=== PATIENT | male | born 2000 | race Hispanic/Latino ===

== ENCOUNTER 2020-06-27 23:45 | Emergency (ER) | payer OTHER, SELFPAY ==
[2020-06-28] MEDS ORDERED: ACETAMINOPHEN 500 MG TAB ONE (01:32)
[2020-06-28 02:31] LABS: Absolute Lymphocytes (CBC) 0.9 K/uL (0.7-4.9); Basophils % 0.1 % (0-1.3); Hematocrit 44.4 % (39.6-49.0); Lymphocytes % 6.7 % (15.3-44.8); RBC Red Blood Cell Count 4.89 M/uL (4.33-5.43)
[2020-06-28 02:37] LABS: ALT/SGPT 48 U/L (12-78); AST/SGOT 21 U/L (15-37); Albumin 4.1 g/dL (3.4-5.0); Alkaline Phosphatase 65 U/L (45-117); BUN Blood Urea Nitrogen 12 mg/dL (7-18); Bicarbonate 27 mmol/L (21-32); Bilirubin Direct 0.1 mg/dL (0-0.2); Bilirubin Total 0.6 mg/dL (0.2-1.0); Glucose Level 92 mg/dL (74-106); Lipase 52 U/L (73-393); NT PRO-BNP 76 pg/mL (<125); Potassium 3.6 mmol/L (3.5-5.1); Protein, Total 8.1 g/dL (6.4-8.2); Sodium Level 142 mmol/L (136-145); Troponin (Emerg Dept Use Only) < 0.02 ng/mL (0.0-0.045)
[2020-06-28] MEDS ORDERED: IPRATROPIUM BROM 0.5MG/2.5ML ONE (03:58)
[2020-06-28] MEDS ORDERED: ALBUTEROL 2.5 MG/3 ML NEB SOL ONE (03:58)
[2020-06-28] MEDS ORDERED: CLINDAMYCIN IV 150 MG/ML (4 mL) VIAL ONE (08:01)
[2020-06-28] MEDS ORDERED: NA CHLORIDE 0.9% 50 ML ONE (08:01)
--- NOTE | 2020-06-28 09:07 | RAD REPORT ---
EXAM DESCRIPTION: RAD - Chest Single View - 06/28/2020 1:29 am CLINICAL HISTORY: COUGH Chest pain. COMPARISON: No comparisons FINDINGS: Portable technique limits examination quality. The lungs are grossly clear. The heart is normal in size. No displaced fractures. IMPRESSION: No acute intrathoracic process suspected.
--- NOTE | 2020-06-28 09:30 | ER ---
Nurse's Notes [facility] Name: Kla Newman Age: 19 yrs Sex: Male : 2000 Arrival Date: 06/27/2020 Time: 23:48 Bed 14 Private MD: Diagnosis: Vomiting-pneumomediastinum Presentation: 06/28 00:50 Chief complaint: Patient states: I was drinking Charli aid on Saturday and accidently jb4 inhaled it and it irritated my throat. I think that swallowing my saliva to soothe my throat caused it to get infected. Coronavirus screen: Client denies travel out of the [place] in the last 14 days. At this time, the client does not indicate any symptoms associated with coronavirus-19. Ebola Screen: No symptoms or risks identified at this time. Initial Sepsis Screen: Does the patient meet any 2 criteria? HR > 90 bpm. Yes Does the patient have a suspected source of infection? No. Patient's initial sepsis screen is negative. Risk Assessment: Do you want to hurt yourself or someone else? Patient reports no desire to harm self or others. Onset of symptoms was June 25, 2020. Transition of care: patient was not received from another setting of care. 00:50 Method Of Arrival: Ambulatory jb4 00:50 Acuity: SAEED 3 jb4 Triage Assessment: 07:00 Respiratory: Reports cough that is Onset: The symptoms/episode began/occurred the iw patient has mild shortness of breath. Historical: - Allergies: 00:52 No Known Allergies; jb4 - Home Meds: 00:52 None [Active]; jb4 - PMHx: 00:52 None; jb4 - PSHx: 00:52 None; jb4 - Immunization history:: Adult Immunizations not up to date. - Social history:: Smoking status: Patient reports the use of cigarette tobacco products, smokes one pack cigarettes per day. Patient uses street drugs, marijuana, Patient/guardian denies using alcohol. Screenin:52 Abuse screen: Denies threats or abuse. Nutritional screening: No deficits noted. jb4 Tuberculosis screening: No symptoms or risk factors identified. Fall Risk None identified. Assessment: 00:52 General: Appears in no apparent distress. uncomfortable, ill, Behavior is calm, jb4 cooperative, appropriate for age. Pain: Complains of pain in chest Pain radiates to back Pain currently is 6 out of 10 on a pain scale. Neuro: Level of Consciousness is awake, alert, obeys commands, Oriented to person, place, time, situation. Cardiovascular: Patient's skin is warm and dry. Respiratory: Airway is patent Respiratory effort is even, unlabored, Respiratory pattern is regular, symmetrical, Breath sounds are clear in right upper lobe, left upper lobe, right middle lobe, right lower lobe, left posterior upper lobe, right posterior upper lobe, left posterior lower lobe, right posterior middle lobe and right posterior lower lobe Breath sounds with wheezes in left lower lobe. GI: No signs and/or symptoms were reported involving the gastrointestinal system. : No signs and/or symptoms were reported regarding the genitourinary system. EENT: No signs and/or symptoms were reported regarding the EENT system. Derm: Skin is intact, Skin is pink, warm \T\ dry. Musculoskeletal: Circulation, motion, and sensation intact. Range of motion: intact in all extremities. 01:30 Reassessment: Pt oxygen dropped while supine and awake. Placed on 2L NC provider jb4 notified. 01:40 Reassessment: Pt O2 increased to 93% while on 2L NC. jb4 02:45 Reassessment: Patient appears in no apparent distress at this time. Patient and/or jb4 family updated on plan of care and expected duration. Pain level reassessed. Patient is alert, oriented x 3, equal unlabored respirations, skin warm/dry/pink. 04:00 Reassessment: Patient appears in no apparent distress at this time. Patient and/or jb4 family updated on plan of care and expected duration. Pain level reassessed. Patient is alert, oriented x 3, equal unlabored respirations, skin warm/dry/pink. Patient states feeling better. 05:00 Reassessment: Patient appears in no apparent distress at this time. Patient and/or jb4 family updated on plan of care and expected duration. Pain level reassessed. Patient is alert, oriented x 3, equal unlabored respirations, skin warm/dry/pink. 05:30 Reassessment: CT report is back. Provider notified of CT report, pt denies recent jb4 vascular access attempts to the right jugular area of the neck. Crepitus is noted to the right of the trachea and tenderness is reported upon palpation. Provider notified. Pt's trachea remains midline, with no visible exterior swelling noted. Respirations are even and unlabored. 05:45 Reassessment: Patient appears in no apparent distress at this time. Patient and/or jb4 family updated on plan of care and expected duration. Pain level reassessed. Patient is alert, oriented x 3, equal unlabored respirations, skin warm/dry/pink. 06:45 Reassessment: Patient appears in no apparent distress at this time. Patient and/or jb4 family updated on plan of care and expected duration. Pain level reassessed. Patient is alert, oriented x 3, equal unlabored respirations, skin warm/dry/pink. Mother remains at the bedside. 08:08 Reassessment: Patient appears in no apparent distress at this time. Patient and/or iw family updated on plan of care and expected duration. Pain level reassessed. Patient is alert, oriented x 3, equal unlabored respirations, skin warm/dry/pink. mother at beside, updated on POC, no beds available in [facility] at this time, will continue to attempt transfer. 10:00 Cardiovascular: Rhythm is regular. iw Vital Signs: 00:50 BP 152 / 96; Pulse 112; Resp 18; Temp 100.4(O); Pulse Ox 94% on R/A; Weight 77.11 kg jb4 (R); Height 5 ft. 5 in. (165.10 cm) (R); Pain 6/10; 01:30 BP 140 / 74; Pulse 104; Resp 20; Pulse Ox 89% on R/A; jb4 01:51 Pulse Ox 95% on 2 lpm NC; jb4 02:30 BP 129 / 84; Pulse 93; Resp 16; Pulse Ox 97% on 2 lpm NC; jb4 03:04 Temp 98.7(O); jb4 04:00 BP 139 / 80; Pulse 122; Resp 16; Pulse Ox 97% on R/A; jb4 04:30 BP 132 / 68; Pulse 110; Resp 18; Pulse Ox 96% on R/A; jb4 05:45 BP 136 / 83; Pulse 105; Resp 16; Pulse Ox 95% on R/A; jb4 06:45 BP 129 / 65; Pulse 101; Resp 16; Pulse Ox 95% on R/A; jb4 08:09 BP 128 / 84; Pulse 98; Resp 16; Pulse Ox 95% on R/A; mh5 00:50 Body Mass Index 28.29 (77.11 kg, 165.10 cm) jb4 ED Course: 06/27 23:48 Patient arrived in ED. ag3 23:49 Chelsea [facility]-C [facility]. kb 23:49 Nelson Voss MD is Attending Physician. kb 06/28 00:38 Koko Rodrigez, RN is Primary Nurse. jb4 00:52 Triage completed. jb4 00:52 Arm band placed on right wrist. jb4 00:57 Nelson Voss MD is Attending Physician. tw4 01:29 XRAY CXR (1 view) In Process Unspecified. EDMS 01:40 Inserted saline lock: 18 gauge in right antecubital area, using aseptic technique. jb4 Blood collected. 01:40 Initial lab(s) drawn, by me, sent to lab. First set of blood cultures drawn by me. jb4 04:39 CT Chest For PE Angio In Process Unspecified. EDMS 05:24 Initiated transfer at [facility] with Emma Mohit. Stated she would do a bed check tt3 and call back. 05:41 Emma called back to see if the pt was okay with going to another campus as the [facility] had no beds available. Updated her and informed her that the pt was okay with going to another campus. 05:57 Emma called back with their physician to speak with Dr. Voss regarding the transfer tt3 request. 06:04 Initiated transfer at [facility] with Rosalia Oliveira. The call was transferred to tt3 Dr. Voss per Rosalia's request. 06:35 Rosalia Oliveira called back and stated that the transfer was denied due to capacity. tt3 06:35 Initiated transfer at [facility] with Gaby Faulkner. Stated she would do a capacity check and tt3 reach out to faculty and call back as soon as she could. 06:47 Gaby Faulkner from [facility] called back and stated after doing a capacity check, they would tt3 have to deny because they are at capacity at all campuses. 06:48 Initiated transfer at [facility] and spoke with Ghislaine. Stated that they had to tt3 decline due to capacity. 06:56 Initiated transfer at [facility] with Pat. Was informed that the [facility] was on tt3 transfer closure until 1000. The [facility] is on transfer closure until 0800. [facility] [place] [facility] required. 07:00 Patient has correct armband on for positive identification. iw 07:30 Attending Physician role handed off by Nelson Voss MD ma2 07:30 Audrey Acosta MD is Attending Physician. ma2 08:13 re initiated transfer to [facility],spoke with Paul, requested that pt go to the ER. 08:21 initiated transfer to [facility]. bd 08:23 pt denied at [facility] due to no beds at this time,per Willow. bd 08:24 initiated transfer to [facility]. bd 08:33 spoke with Kallie with [facility]. [facility] is on transfer closure. bd 08:42 was contacted by willow at [facility], requested a 15 min extension. she is waiting on the thoracic surgeon from [facility] to contact her. states that there is a bed at [facility], she is working to secure the bed. 09:34 pt accepted in transfer to [facility] by dr Gagnon,admin approval given by yola mora. 10:25 No provider procedures requiring assistance completed. Patient transferred, IV remains iw in place. Administered Medications: 01:19 Drug: Tylenol 1000 mg Route: PO; jb4 03:05 Follow up: Response: No adverse reaction; Temperature is decreased jb4 03:51 Drug: DuoNeb (albuterol 2.5 mg, ipratropium 0.5 mg) (3:1) (2.5 mg - 0.5 mg) 3 ml Route: jb4 Nebulizer; 08:05 Drug: Clindamycin 300 mg Route: IVPB; Infused Over: 30 mins; Site: right antecubital; iw 10:14 Drug: TORadol 30 mg Route: IVP; Site: right antecubital; iw Outcome: 09:30 ER care complete, transfer ordered by . ma2 10:25 Transferred by ground EMS to [facility], Transfer form completed. X-rays sent iw w/ patient. Note: [facility] 10:25 Condition: stable 10:25 Discharge instructions given to patient, Instructed on the need for transfer, Demonstrated understanding of instructions. 10:27 Patient left the ED. iw Signatures: Dispatcher [employer] EDMS Chelsea Garcia, SILICA MIXER OPERATOR-C SILICA MIXER OPERATOR-Ckb Ericka Blackwell Irene, RN RN iw Bryson, James, RN RN jb4 Paty Liz 5 Audrey Acosta MD MD ma2 Nelson Voss MD MD tw4 Unique Burnett ag3 Jose J Vann tt3 Corrections: (The following items were deleted from the chart) 02:56 00:52 Respiratory: Airway is patent Respiratory effort is even, unlabored, Respiratory jb4 pattern is regular, symmetrical, jb4 08:23 08:13 re initiated transfer to [facility],spoke with Paul, requested that pt bd go to the [facility]u. bd
--- NOTE | 2020-06-28 09:30 | EDPHYS ---
Physician Documentation [facility] Name: Kal Newman Age: 19 yrs Sex: Male : 2000 Arrival Date: 06/27/2020 Time: 23:48 Bed 14 Private MD: ED Physician Audrey Acosta HPI: 06/28 03:13 This 19 yrs old Male presents to ER via Ambulatory with complaints of Cough, tw4 Shortness Of Breath, Headache. 03:13 The patient or guardian reports cough, difficulty breathing. Onset: The tw4 symptoms/episode began/occurred today. Severity of symptoms: At their worst the symptoms were moderate, in the emergency department the symptoms are unchanged. The patient has not experienced similar symptoms in the past. Historical: - Allergies: 00:52 No Known Allergies; jb4 - Home Meds: 00:52 None [Active]; jb4 - PMHx: 00:52 None; jb4 - PSHx: 00:52 None; jb4 - Immunization history:: Adult Immunizations not up to date. - Social history:: Smoking status: Patient reports the use of cigarette tobacco products, smokes one pack cigarettes per day. Patient uses street drugs, marijuana, Patient/guardian denies using alcohol. ROS: 03:13 Constitutional: Negative for fever, chills, and weight loss, Eyes: Negative for injury, tw4 pain, redness, and discharge, Cardiovascular: Negative for chest pain, palpitations, and edema, Abdomen/GI: Negative for abdominal pain, nausea, vomiting, diarrhea, and constipation, Back: Negative for injury and pain, MS/Extremity: Negative for injury and deformity, Skin: Negative for injury, rash, and discoloration, Neuro: Negative for headache, weakness, numbness, tingling, and seizure. 03:13 Respiratory: Positive for shortness of breath, Negative for cough, dyspnea on exertion, hemoptysis, orthopnea, pleurisy. 07:09 Abdomen/GI: Positive for vomiting. tw4 Exam: 03:13 Constitutional: This is a well developed, well nourished patient who is awake, alert, tw4 and in no acute distress. Head/Face: Normocephalic, atraumatic. Chest/axilla: Normal chest wall appearance and motion. Nontender with no deformity. No lesions are appreciated. Cardiovascular: Regular rate and rhythm with a normal S1 and S2. No gallops, murmurs, or rubs. Normal PMI, no JVD. No pulse deficits. Respiratory: Lungs have equal breath sounds bilaterally, clear to auscultation and percussion. No rales, rhonchi or wheezes noted. No increased work of breathing, no retractions or nasal flaring. Abdomen/GI: Soft, non-tender, with normal bowel sounds. No distension or tympany. No guarding or rebound. No evidence of tenderness throughout. Back: No spinal tenderness. No costovertebral tenderness. Full range of motion. MS/ Extremity: Pulses equal, no cyanosis. Neurovascular intact. Full, normal range of motion. Neuro: Awake and alert, GCS 15, oriented to person, place, time, and situation. Cranial nerves II-XII grossly intact. Motor strength 5/5 in all extremities. Sensory grossly intact. Cerebellar exam normal. Normal gait. Vital Signs: 00:50 BP 152 / 96; Pulse 112; Resp 18; Temp 100.4(O); Pulse Ox 94% on R/A; Weight 77.11 kg jb4 (R); Height 5 ft. 5 in. (165.10 cm) (R); Pain 6/10; 01:30 BP 140 / 74; Pulse 104; Resp 20; Pulse Ox 89% on R/A; jb4 01:51 Pulse Ox 95% on 2 lpm NC; jb4 02:30 BP 129 / 84; Pulse 93; Resp 16; Pulse Ox 97% on 2 lpm NC; jb4 03:04 Temp 98.7(O); jb4 04:00 BP 139 / 80; Pulse 122; Resp 16; Pulse Ox 97% on R/A; jb4 04:30 BP 132 / 68; Pulse 110; Resp 18; Pulse Ox 96% on R/A; jb4 05:45 BP 136 / 83; Pulse 105; Resp 16; Pulse Ox 95% on R/A; jb4 06:45 BP 129 / 65; Pulse 101; Resp 16; Pulse Ox 95% on R/A; jb4 08:09 BP 128 / 84; Pulse 98; Resp 16; Pulse Ox 95% on R/A; 5 00:50 Body Mass Index 28.29 (77.11 kg, 165.10 cm) jb4 MDM: 05:53 Patient medically screened. tw4 07:09 Data reviewed: vital signs, nurses notes, lab test result(s), CBC, electrolytes, tw4 radiologic studies, CT scan, plain films. Data interpreted: Pulse oximetry: Interpretation: normal. Counseling: I had a detailed discussion with the patient and/or guardian regarding: the historical points, exam findings, and any diagnostic results supporting the discharge/admit diagnosis. ED course: CT CHEST REVEAL NO MD BUT REVEAL PNEUMOMEDIASTINUM POSSIBLY FROM ESOPHAGEAL OR TRACHEAL PERFORATION. 09:25 ED course: ct shows gas in soft tissue and neck and peumomediastinum. patient is stable ma2 for transfer, will trnasfer for higher level of care as he needs ct surgery back up in addition to further evaluation of trachea and esophagus. accepted hy chuck wilcox at [facility] . 06/28 01:15 Order name: Blood Culture Adult (2) tw4 06/28 01:15 Order name: BMP; Complete Time: 04:26 tw 06/28 01:15 Order name: CBC with Diff; Complete Time: 03:06 tw4 06/28 01:15 Order name: Hepatic Function; Complete Time: 04:26 tw4 06/28 01:15 Order name: Lipase; Complete Time: 04:26 tw4 06/28 01:15 Order name: NT PRO-BNP; Complete Time: 04:26 tw4 06/28 01:15 Order name: XRAY CXR (1 view); Complete Time: 09:24 tw4 06/28 01:15 Order name: Troponin (emerg Dept Use Only); Complete Time: 04:26 tw 06/28 01:16 Order name: Blood Culture EDMD 06/28 03:02 Order name: SARS-COV-2 RT PCR; Complete Time: 03:06 [facility] 06/28 03:44 Order name: CT Chest For PE Angio tw4 06/28 01:15 Order name: EKG; Complete Time: 01:16 06/28 01:15 Order name: Cardiac monitoring; Complete Time: 01:47 06/28 01:15 Order name: EKG - Nurse/Tech; Complete Time: 01:52 06/28 01:15 Order name: IV Saline Lock; Complete Time: 01:46 06/28 01:15 Order name: Labs collected and sent; Complete Time: : tw4 06/28 01:15 Order name: O2 Per Protocol; Complete Time: 06/28 01:15 Order name: O2 Sat Monitoring; Complete Time: EC:46 Rate is 97 beats/min. Rhythm is regular. QRS [place] is Normal. MD interval is normal. QRS tw4 interval is normal. QT interval is normal. No Q waves. T waves are Normal. No ST changes noted. Clinical impression: Normal ECG. Interpreted by me. Reviewed by me. Administered Medications: 01:19 Drug: Tylenol 1000 mg Route: PO; [facility] 03:05 Follow up: Response: No adverse reaction; Temperature is decreased [facility] 03:51 Drug: DuoNeb (albuterol 2.5 mg, ipratropium 0.5 mg) (3:1) (2.5 mg - 0.5 mg) 3 ml Route: jb4 Nebulizer; 08:05 Drug: Clindamycin 300 mg Route: IVPB; Infused Over: 30 mins; Site: right antecubital; iw 10:14 Drug: TORadol 30 mg Route: IVP; Site: right antecubital; iw Disposition: 06/28/20 09:[address] [facility]. Diagnosis is Vomiting - pneumomediastinum . - Reason for transfer: Higher level of care. - Accepting physician is Dr. Smith . - Condition is Stable. - Problem is new. - Symptoms are unchanged. Signatures: Dispatcher [employer] EDMD Ingrid Lundberg RN RN iw Raymon Ramachandran, ACID POLYMERIZATION OPERATOR-C ACID POLYMERIZATION OPERATOR-Cla1 Koko Rodrigez RN RN jb4 Audrey Acosta MD MD ma2 Nelson Voss MD MD tw4 Corrections: (The following items were deleted from the chart) 02:05 01:16 CORONAVIRUS+MR.LAB.BRZ ordered. [facility] 10:27 09:30 06/28/2020 09:[address] [facility]. Diagnosis is iw Vomiting - pneumomediastinum . Reason for transfer: Higher level of care. Accepting physician is Dr. Smith . Condition is Stable. Problem is new. Symptoms are unchanged. ma2
[2020-06-28] MEDS ORDERED: KETOROLAC 30 MG/ML INJ ONE (10:29)
[2020-06-28 11:11] VITALS: BP 116/79; TEMP 99.1; O2SAT 99
--- NOTE | 2020-06-28 12:53 | EKG ---
Test Date: 2020-06-28 Test Time: 01:50:01 Extractor Operator Solvent Process: FREDI MEASUREMENT RESULTS: Intervals: Rate: 97 MS: 146 QRSD: 88 QT: 334 QTc: 424 Kite: P: 64 MS: 146 QRS: 88 T: 60 INTERPRETIVE STATEMENTS: Normal sinus rhythm Normal ECG Compared to ECG 08/11/2014 21:42:40 Sinus arrhythmia no longer present Electronically Signed On 06-28-20 12:52:31 CDT by Matty Langston
--- NOTE | 2020-06-28 12:54 | RAD REPORT ---
EXAM DESCRIPTION: CTA Chest, Pulmonary Embolus Protocol COMPARISON: None. CLINICAL HISTORY: [facility] MAIN SOB TECHNIQUE: CT images through the chest with IV contrast using the pulmonary embolus protocol. Multip lanar reformats. Automated exposure control was utilized on this examination as a dose lowering yaneli hnique. FINDINGS: Pulmonary arteries and vascular: Limited evaluation due to bolus timing and beam hardening artifact. No large proximal filling defects. Heart and mediastinum: Heart size is normal. No lymphadenopathy. Thyroid gland: Visualized portions are normal. Lungs: Clear. Airways: No filling defects. No bronchiectasis. Pleura: No pneumothorax. No significant pleural effusion. Subphrenic structures: Within normal limits. Musculoskeletal and soft tissues: There is gas in the soft tissues of the neck and superior mediastin um. IMPRESSION: 1. Limited evaluation due to bolus timing and beam hardening artifact. No large proximal pulmonary emboli or other acute cardiopulmonary process. 2. Gas in the soft tissues of the neck and superior mediastinum could be from vascular access attem pt and less likely infection or tracheal or esophageal perforation. This is most concentrated in the right internal jugular region and anterior to the trachea. Recommend correlation with procedural hist ory. Electronically signed by: Zeke Lynn MD 06/28/2020 4:56 AM CDT Due to temporary technical issues with the PACS/Fluency reporting system, reports are being signed by the in house radiologists without review as a courtesy to insure prompt reporting. The interpreting radiologist is fully responsible for the content of the report.
== END 2020-06-28 10:27 | disposition short-term general hospital (02) ==
LOC: ER 23:45
DX: J98.2 Interstitial emphysema (principal); Z20.822 Contact with and (suspected) exposure to COVID-19; F17.210 Nicotine dependence, cigarettes, uncomplicated
CPT/HCPCS: 36415; 71045; 71275; 80048; 80076; 83690; 83880; 84484; 85025; 87040; 93005; 96374; 96375; 99285; Q9967; S0077; U0003

== ENCOUNTER → 2023-04-26 | Emergency (ER) | payer SELFPAY ==
[~2023-04-26] MED LIST: ACETAMINOPHEN 500 MG TAB ONE; IBUPROFEN 400 MG TAB ONE; LIDOCAINE 1% MPF 30 ML VIAL ONE
[2023-04-26 15:58] LABS: Absolute Lymphocytes (CBC) 2.8 K/uL (0.7-4.9); Hematocrit 43.7 % (39.6-49.0); Lymphocytes % 39.4 % (15.3-44.8); MCV 88.9 fL (80-100); MPV 7.3 fL (7.6-11.3); Platelets 343 thou/uL (152-406); RBC Red Blood Cell Count 4.92 M/uL (4.33-5.43)
[2023-04-26 16:07] LABS: Potassium 3.2 mEq/L (3.5-5.1)
[2023-04-26 16:08] LABS: Albumin 3.8 g/dL (3.4-5.0); Bilirubin Total 0.4 mg/dL (0.2-1.0)
--- NOTE | 2023-04-26 16:33 | EDPHYS ---
Physician Documentation [facility] Name: Kal Newman Age: 22 yrs Sex: Male : 2000 Arrival Date: 04/26/2023 Time: 15:15 Bed 5 Private MD: KARINA INMAN ED Physician Reese Yee HPI: 04/26 15:18 This 22 yrs old Male presents to ER via Unassigned with complaints of Rectal sp4 Abscess. 16:38 22-year-old male presents with purplish type cyst associated with pain right above sp4 gluteal cleft. Patient states this has been there for several months however pain has intensified in the last few days. This does not appear infected. Patient is concerned about pilonidal cyst. . Historical: - Allergies: 15:24 No Known Allergies; mb9 - Home Meds: 15:24 None [Active]; mb9 - PMHx: 15:24 None; mb9 - PSHx: 15:24 None; mb9 - Immunization history:: Adult Immunizations up to date. - Social history:: Smoking status: Patient denies any tobacco usage or history of. - Family history:: not pertinent. ROS: 16:38 Constitutional: Negative for fever, chills, and weight loss, positive skin cyst above sp4 gluteal cleft 16:38 All other systems are negative, Exam: 16:38 Constitutional: This is a well developed, well nourished patient who is awake, alert, sp4 and in no acute distress. Head/Face: Normocephalic, atraumatic. Eyes: Pupils equal round and reactive to light, extra-ocular motions intact. Lids and lashes normal. Conjunctiva and sclera are not injected. Cornea within normal limits. Periorbital areas with no swelling, redness, or edema. ENT: Nares patent. No nasal discharge, no septal abnormalities noted. Tympanic membranes are normal and external auditory canals are clear. Oropharynx with no redness, swelling, or masses, exudates, or evidence of obstruction, uvula midline. Mucous membranes moist. Neck: Trachea midline, no thyromegaly or masses palpated, and no cervical lymphadenopathy. Supple, full range of motion without nuchal rigidity, or vertebral point tenderness. Chest/axilla: Normal chest wall appearance and motion. Nontender with no deformity. No lesions are appreciated. Cardiovascular: Regular rate and rhythm with a normal S1 and S2. No gallops, murmurs, or rubs. Normal PMI, no JVD. No pulse deficits. Respiratory: Lungs have equal breath sounds bilaterally, clear to auscultation and percussion. No rales, rhonchi or wheezes noted. No increased work of breathing, no retractions or nasal flaring. Abdomen/GI: Soft, non-tender, with normal bowel sounds. No distension or tympany. No guarding or rebound. No evidence of tenderness throughout. Back: No spinal tenderness. No costovertebral tenderness. Skin: Warm, dry with normal turgor. Normal color with no rashes, no lesions, and no evidence of cellulitis. There is purplish skin at gluteal cleft, consistent with noninfected pressurized pilonidal cyst MS/ Extremity: Pulses equal, no cyanosis. Neurovascular intact. Full, normal range of motion. Neuro: Awake and alert, GCS 15, oriented to person, place, time, and situation. Cranial nerves II-XII grossly intact. Motor strength 5/5 in all extremities. Sensory grossly intact. Psych: Awake, alert, with orientation to person, place and time. Behavior, mood, and affect are within normal limits Vital Signs: 15:25 BP 161 / 84; Pulse 60; Resp 18; Temp 97.4; Pulse Ox 100% on R/A; Weight 75.3 kg; Height mb9 5 ft. 5 in. ; 16:01 BP 117 / 62; Pulse 65; Resp 18; Pulse Ox 100% on R/A; ld1 16:48 BP 120 / 65; Pulse 70; Resp 18; Pulse Ox 99% on R/A; rs5 15:25 Body Mass Index 27.62 (75.30 kg, 165.1 cm) mb9 Procedures: 16:28 I \T\ D: Incision and drainage was performed for an abscess of the pilonidal cyst Small sp4 pilonidal cyst above gluteal abscess Prepped with Betadine, Anesthetized with 20 ml's 1% Lidocaine. Incised with #10 blade. Drained moderate amount Sebaceous material , blood Packed with iodoform gauze, Dressing: sterile 4x4 gauze, the patient tolerated the procedure well, Non infected pressurized pilonidal cyst drained - moderate amount . MDM: 15:38 Patient medically screened. sp4 16:28 Differential diagnosis: hemorrhoids, fissure, abscess, pilonidal cyst, condyloma. Data sp4 reviewed: vital signs, nurses notes, old medical records, lab test result(s), CBC, electrolytes. ED course: Patient will be referred to Dr. French for pilonidal cyst resection. . 04/26 15:19 Order name: CBC with Diff; Complete Time: 16:13 sp4 04/26 15:19 Order name: CMP; Complete Time: 16:13 sp4 04/26 15:19 Order name: IV Saline Lock; Complete Time: 15:43 sp4 04/26 15:19 Order name: Labs collected and sent; Complete Time: 15:43 sp4 04/26 15:38 Order name: Dressing - Wound; Complete Time: 15:43 sp4 04/26 15:38 Order name: Gloves, Sterile; Complete Time: 15:43 sp4 04/26 15:38 Order name: Setup Suture Tray; Complete Time: 15:43 sp4 Administered Medications: 15:59 Drug: Lidocaine Infiltration (1 %) 30 ml 20 ml Infiltration once; to bedside {Note: Adm rs5 by the provider to abscess on upper buttocks .} Volume: 20 ml; Route: Infiltration; 16:15 Follow up: Response: No adverse reaction rs5 16:22 Drug: Ibuprofen PO 800 mg PO once Route: PO; ld1 16:49 Follow up: Response: No adverse reaction rs5 16:22 Drug: Acetaminophen PO 1000 mg PO once Route: PO; ld1 16:49 Follow up: Response: No adverse reaction rs5 Disposition Summary: 04/26/23 16:32 Discharge Ordered Problem: new sp4 Symptoms: have improved sp4 Condition: Stable sp4 Diagnosis - Pilonidal cyst without abscess sp4 - Incision and drainage of pilonidal cyst sp4 Followup: sp4 - With: Dayday French MD - When: 10 - 14 days - Reason: Recheck today's complaints Discharge Instructions: - Discharge Summary Sheet sp4 - Pilonidal Cyst Drainage, Care After sp4 Forms: - Patient Portal Instructions sp4 Prescriptions: - Ibuprofen 800 mg Oral Tablet - take 1 tablet ORAL route every 8 hours As needed take with food; 30 tablet; sp4 Refills: 0, Product Selection Permitted Signatures: Dispatcher [employer] EDLiliana Lira RN RN ld1 Laquita Cai, RN RN mb9 Maikol Schwarz RN RN rs5 Reese Yee MD MD sp4
--- NOTE | 2023-04-26 16:33 | ER ---
Nurse's Notes [facility] Name: Kal Newman Age: 22 yrs Sex: Male : 2000 Arrival Date: 04/26/2023 Time: 15:15 Bed 5 Private MD: KARINA INMAN Diagnosis: Pilonidal cyst without abscess;Incision and drainage of pilonidal cyst Presentation: 04/26 15:25 Chief complaint: Patient states: "I've had a cyst above my tailbone for the past 3 mb9 months. It's purple, swollen, and painful to touch". Coronavirus screen: At this time, the client does not indicate any symptoms associated with coronavirus-19. Ebola Screen: No symptoms or risks identified at this time. Initial Sepsis Screen: Does the patient meet any 2 criteria? No. Patient's initial sepsis screen is negative. Does the patient have a suspected source of infection? No. Patient's initial sepsis screen is negative. Risk Assessment: Do you want to hurt yourself or someone else? Patient reports no desire to harm self or others. Onset of symptoms was April 26, 2023. 15:25 Method Of Arrival: Ambulatory mb9 15:25 Acuity: SAEED 3 mb9 Historical: - Allergies: 15:24 No Known Allergies; mb9 - Home Meds: 15:24 None [Active]; mb9 - PMHx: 15:24 None; mb9 - PSHx: 15:24 None; mb9 - Immunization history:: Adult Immunizations up to date. - Social history:: Smoking status: Patient denies any tobacco usage or history of. - Family history:: not pertinent. Screenin:21 [facility] ED Fall Risk Assessment (Adult) History of falling in the last 3 months, rs5 including since admission No falls in past 3 months (0 pts) Confusion or Disorientation No (0 pts) Intoxicated or Sedated No (0 pts) Impaired Gait No (0 pts) Mobility Assist Device Used No (0 pt) Altered Elimination No (0 pt) Score/Fall Risk Level 0 - 2 = Low Risk Oriented to surroundings, Maintained a safe environment. Abuse screen: Denies threats or abuse. Nutritional screening: No deficits noted. Tuberculosis screening: No symptoms or risk factors identified. Assessment: 15:25 General: Appears in no apparent distress. uncomfortable, Behavior is calm, cooperative. rs5 Pain: Complains of pain in lower tailbone Pain does not radiate. Pain currently is 4 out of 10 on a pain scale. Quality of pain is described as aching, Pain began three months ago, worse today Is continuous, Aggravated by weight bearing. Neuro: Level of Consciousness is awake, alert, obeys commands, Oriented to person, place, time, situation. Cardiovascular: Heart tones S1 S2 present Patient's skin is warm and dry. Rhythm is regular. 15:25 Respiratory: Respiratory effort is even, unlabored, Respiratory pattern is regular, rs5 symmetrical. GI: Abdomen is round non-distended, Bowel sounds present X 4 quads. Abd is soft and non tender X 4 quads. : No signs and/or symptoms were reported regarding the genitourinary system. EENT: No signs and/or symptoms were reported regarding the EENT system. Derm: Skin is intact, Skin is dry, Skin is normal, Skin temperature is warm Abscess located on tailbone is quarter sized, is red, is raised, Reports pain that is 4 out of 10 on a pain scale. 15:25 Musculoskeletal: Range of motion: intact in all extremities. rs5 16:00 Reassessment: Provider at bedside for I\\T\\D, pt tolerated procedure well. rs5 16:48 Reassessment: Patient and/or family updated on plan of care and expected duration. Pain rs5 level reassessed. Patient is alert, oriented x 3, equal unlabored respirations, skin warm/dry/pink. Patient states feeling better. Patient states symptoms have improved. Vital Signs: 15:25 BP 161 / 84; Pulse 60; Resp 18; Temp 97.4; Pulse Ox 100% on R/A; Weight 75.3 kg; Height mb9 5 ft. 5 in. ; 16:01 BP 117 / 62; Pulse 65; Resp 18; Pulse Ox 100% on R/A; ld1 16:48 BP 120 / 65; Pulse 70; Resp 18; Pulse Ox 99% on R/A; rs5 15:25 Body Mass Index 27.62 (75.30 kg, 165.1 cm) mb9 ED Course: 15:18 Patient arrived in ED. rg4 15:18 Reese Yee MD is Attending Physician. sp4 15:18 KARINA INMAN is Private Physician. rg4 15:21 Patient has correct armband on for positive identification. Placed in gown. Bed in low rs5 position. Call light in reach. Side rails up X2. 15:24 Arm band placed on. mb9 15:28 Triage completed. mb9 15:36 Inserted saline lock: 20 gauge in right antecubital area, using aseptic technique. rc3 Blood collected. 15:59 Maikol Schwarz, RN is Primary Nurse. rs5 16:04 Assist provider with I \\T\\ D: of an abscess on lower tailbone, pt tolerated procedure rs5 well. 16:31 Dayday French MD is Referral Physician. sp4 16:49 IV discontinued, intact, bleeding controlled, No redness/swelling at site. Pressure rs5 dressing applied. Administered Medications: 15:59 Drug: Lidocaine Infiltration (1 %) 30 ml 20 ml Infiltration once; to bedside {Note: Adm rs5 by the provider to abscess on upper buttocks .} Volume: 20 ml; Route: Infiltration; 16:15 Follow up: Response: No adverse reaction rs5 16:22 Drug: Ibuprofen PO 800 mg PO once Route: PO; ld1 16:49 Follow up: Response: No adverse reaction rs5 16:22 Drug: Acetaminophen PO 1000 mg PO once Route: PO; ld1 16:49 Follow up: Response: No adverse reaction rs5 Medication: 16:04 VIS not applicable for this client. rs5 Outcome: 16:32 Discharge ordered by . sp4 16:48 Discharged to home ambulatory, with family, rs5 16:48 Condition: stable 16:48 Discharge instructions given to patient, Instructed on discharge instructions, follow up and referral plans. medication usage, Demonstrated understanding of instructions, follow-up care, medications, Prescriptions given X 1, 16:49 Patient left the ED. rs5 Signatures: Yovana Bazzi rg4 Liliana Hammond RN RN ld1 Laquita Cai RN RN mb9 Maikol Schwarz, SHANNAN CAMPBELL rs5 Reese Yee MD MD sp4 Snehal Phipps3
[2023-04-26 17:11] VITALS: BP 120/65; TEMP 97.4; O2SAT 99
== END ==
LOC: ER 15:15
PROC: 0H98XZZ Drainage of Buttock Skin, External Approach (ICD-10-PCS; principal; 2023-04-26)
DX: L05.91 Pilonidal cyst without abscess (principal)
CPT/HCPCS: 36415; 80053; 85025; J2001